=== PATIENT | male | born 1940 | race Caucasian/White ===

== ENCOUNTER 2020-05-06 13:07 | Inpatient (IN) | payer MEDICARE, MEDICAID, SELFPAY ==
[2020-05-06] VITALS (74 sets, daily range): BP systolic 86–142; BP diastolic 71–111; PULSE 97–156; RESP 14–41; TEMP 36.6; O2SAT 81–97; BMI 28.1
--- NOTE | 2020-05-06 14:36 | W.ED.COVID ---
HPI - COVID General: Chief Complaint: COVID symptoms Stated Complaint: covid+/lethargic/no appetite Time Seen by Provider: 05/06/20 13:58 Triage information: Has fever, cough or shortness of breath. Exposure to COVID + person last 14 days History of Present Illness: HPI Narrative: 80-year-old male presents emergency room with complaints of shortness of breath headache cough. Approximately a week ago he was tested for Covid and told it was positive. His symptoms had begun shortly prior to that. On arrival here he is tachycardic and at 81% on room air requiring 5 to 6 L to maintain sats in the low 90s. He is awake and conversant. He did have some loose stools but that is largely resolved. He denies any chest pain. MD complaint: known COVID positive Prior covid testing: yes, results known COVID 19 common symptoms: positive fever(s), chills, cough, productive cough, dyspnea, fatigue, body aches, loss of sense of smell and/or taste and nasal congestion; negative non-productive cough, headache(s), throat pain, nausea, vomiting or diarrhea COVID 19 other sytmptoms: positive chest pressure, requiring oxygen and respiratory distress; negative chest pain Onset (ago): day(s) Severity: moderate Pertinent comorbid conditions: hypertension Treatment prior to arrival: none COVID Results: No Data to Display Review of Systems Const: Reports: fever(s), chills, body aches and fatigue ENMT: Reports: nasal congestion; Denies: throat pain Card: Denies: chest pain, edema, dyspnea on exertion or orthopnea Resp: Reports: dyspnea and productive cough; Denies: non-productive cough GI: Denies: nausea, vomiting or diarrhea : Denies: flank pain, dysuria, urinary frequency or urinary urgency Skin/Breast: Denies: rash or pruritus Neuro: Denies: headache(s) PFS ED PFSH: Medical History (Updated 05/07/20 @ 07:12 by Kulwinder Urrutia DO) BPH (benign prostatic hyperplasia) CAD (coronary artery disease), [place] coronary artery Diabetes mellitus Hypertension Macular degeneration Skin cancer Surgical History (Updated 05/06/20 @ 17:57 by Charly Wells MD) Stented coronary artery Family History (Updated 05/06/20 @ 18:00 by Charly Wells MD) Other CAD (coronary artery disease) Hypertension Social History (Updated 05/06/20 @ 17:58 by Charly Wells MD) Smoking and tobacco status: former smoker Quit status (tobacco): has quit using tobacco Year quit tobacco: 20 yrs ago Alcohol intake: never Substance/Drug Use: never Household members: children Housing: House Marital status: / Physical Exam Const: COMMON NORMALS: no acute distress GENERAL APPEARANCE: cooperative and comfortable ORIENTATION/CONSCIOUSNESS: Yes awake, Yes oriented to person, Yes oriented to place and Yes oriented to time HENMT: COMMON NORMALS: normocephalic, atraumatic and hearing grossly normal bilaterally HEAD & SCALP: normocephalic and atraumatic Neck/C-Spine: COMMON NORMALS: no JVD Resp: AUSCULTATION: rales and wheezes Cardio: COMMON NORMALS: no JVD, regular rate, regular rhythm and No murmurs present (Cardio) RATE: regular rate RHYTHM: regular rhythm GI: COMMON NORMALS: Soft to palpation and No hepatosplenomegaly present AUSCULTATION: Yes normoactive bowel sounds PALPATION: Yes Soft to palpation, No Tenderness to palpation present (GI), No Guarding due to palpation present (GI) and Yes No hepatosplenomegaly present Extremity: COMMON NORMALS: normal to inspection, capillary refill normal, no clubbing, cyanosis or edema, no calf tenderness and no pedal edema Neuro: SENSORIUM/ORIENTATION: Yes oriented to person, Yes oriented to place and Yes oriented to time Skin: COMMON NORMALS: no rashes or lesions noted GENERAL SKIN EXAM: no rashes or lesions noted Course Vital Signs: Vital signs: Vital Signs Temperature 98.1 F 05/07/20 02:04 Pulse Rate 132 H 05/07/20 06:00 Respiratory Rate 24 H 05/07/20 06:00 Blood Pressure 119/82 05/07/20 06:00 Pulse Oximetry 86 L 05/07/20 06:00 MDM - COVID MDM Narrative: Medical decision making narrative: Patient having increased oxygen requirement. We will go ahead and admit. Additionally will need IV antibiotics and supportive care discussed with hospitalist orders are written Lab Data: Attestation: I reviewed the patient's lab results. Labs: Lab Results 05/06/20 05/06/20 05/06/20 Range/Units 00:45 15:00 15:00 WBC 7.6 (4.0-10.0) 10^3/ uL RBC 4.28 (4.1-5.3) 10^6/u L Hgb 12.8 (11.7-16.6) g/dL Hct 39.3 L (42.0-52.0) % MCV 91.8 (80-94) fL MCH 29.9 (28.0-34.0) pg MCHC 32.6 (30.0-36.0) g/dL RDW 13.2 (12.1-15.1) % Plt Count 150 (130-400) 10^3/c mm MPV 12.0 H (7.4-10.4) fL Neut % (Auto) 83.6 % Lymph % (Auto) 10.4 % Whitley % (Auto) 4.7 % Eos % (Auto) 0.1 % Baso % (Auto) 0.0 % Neut # (Auto) 6.33 (1.8-7.7) 10^3/u L Lymph # (Auto) 0.8 (0.8-4.8) 10^3/u L Whitley # (Auto) 0.4 (0.2-0.9) 10^3/u L Eos # (Auto) 0.0 (0.0-0.8) 10^3/u L Baso # (Auto) 0.0 (0.0-0.1) 10^3/u L Nucleated RBC % (a uto) 0 % Nucleated RBCs # 0.0 /100WBC D-Dimer 3.98 H (0-0.59) ug/mIFE U Specimen Type Sample Site ABG pH (7.35-7.45) ABG pCO2 (35-45) mmHg ABG pO2 (80.0-100.0) mmH g ABG HCO3 (22-26) mmol/L ABG Base Excess (-2.0-2.0) mmol/ L Trev Test Hematocrit (42-52) % O2 Delivery Device O2 Liters/Min % Medical Laboratory Scientist ID Sodium (136-145) mmol/L Potassium (3.5-5.1) mmol/L Chloride (98-107) mmol/L Carbon Dioxide (22-29) mmol/L Anion Gap (5-19) BUN (8-23) mg/dL Creatinine (0.7-1.2) mg/dL GFR Calculation Glucose (65-115) mg/dL Calculated Osmolal ity (285-295) mOsm/k g Lactic Acid 4.2 H* (0.5-2.2) mmol/L Calcium (8.5-10.5) mg/dL Total Bilirubin (0.15-1.2) mg/dL AST (0-40) U/L ALT (0-41) U/L Alkaline Phosphata se (40-130) IU/L C-Reactive Protein (0.0-4.9) mg/L Total Protein (6.6-8.7) g/dL Albumin (3.5-5.2) g/dL Globulin (1.3-4.6) g/dL 05/06/20 05/06/20 05/06/20 Range/Units 15:00 15:00 16:00 WBC (4.0-10.0) 10^3/ uL RBC (4.1-5.3) 10^6/u L Hgb (11.7-16.6) g/dL Hct (42.0-52.0) % MCV (80-94) fL MCH (28.0-34.0) pg MCHC (30.0-36.0) g/dL RDW (12.1-15.1) % Plt Count (130-400) 10^3/c mm MPV (7.4-10.4) fL Neut % (Auto) % Lymph % (Auto) % Whitley % (Auto) % Eos % (Auto) % Baso % (Auto) % Neut # (Auto) (1.8-7.7) 10^3/u L Lymph # (Auto) (0.8-4.8) 10^3/u L Whitley # (Auto) (0.2-0.9) 10^3/u L Eos # (Auto) (0.0-0.8) 10^3/u L Baso # (Auto) (0.0-0.1) 10^3/u L Nucleated RBC % (a uto) % Nucleated RBCs # /100WBC D-Dimer (0-0.59) ug/mIFE U Specimen Type Arterial Sample Site Radial, left ABG pH 7.47 H (7.35-7.45) ABG pCO2 26.2 L (35-45) mmHg ABG pO2 47.9 L (80.0-100.0) mmH g ABG HCO3 19.1 L (22-26) mmol/L ABG Base Excess -3.3 L (-2.0-2.0) mmol/ L Trev Test Pos Hematocrit 37.6 L (42-52) % O2 Delivery Device Oxy mask O2 Liters/Min 6.0 % Medical Laboratory Scientist ID [id number] Sodium 133 L (136-145) mmol/L Potassium 4.3 (3.5-5.1) mmol/L Chloride 101 (98-107) mmol/L Carbon Dioxide 20 L (22-29) mmol/L Anion Gap 16.3 (5-19) BUN 22 (8-23) mg/dL Creatinine 1.3 H (0.7-1.2) mg/dL GFR Calculation Not Reportable Glucose 357 H (65-115) mg/dL Calculated Osmolal ity 294 (285-295) mOsm/k g Lactic Acid 3.5 H (0.5-2.2) mmol/L Calcium 9.7 (8.5-10.5) mg/dL Total Bilirubin 0.6 (0.15-1.2) mg/dL AST 16 (0-40) U/L ALT 11 (0-41) U/L Alkaline Phosphata se 90 (40-130) IU/L C-Reactive Protein 86.7 H (0.0-4.9) mg/L Total Protein 6.2 L (6.6-8.7) g/dL Albumin 3.1 L (3.5-5.2) g/dL Globulin 3.1 (1.3-4.6) g/dL COVID Results: No Data to Display Discharge Plan Discharge Patient Disposition: Admitted As Inpatient Admit Provider: Charly Wells Clinical Impression: COVID-19, Acute respiratory failure with hypoxia, Hypertension, Diabetes mellitus Condition: Stable Coding Level of Care Code ED Confectionery Drops Machine Operator for g Fwd Exam Comprehensive
--- NOTE | 2020-05-06 14:43 | XR_ITS ---
WS: [id number] Exam: XR chest 1V portable [id number] Date/Time of Exam: 05/06/2020 2:49 PM Reason For Exam: dyspnea No priors. Widespread groundglass infiltrates noted throughout both lungs. Cardiomediastinal structures are unre markable for technique. No pleural effusion or pneumothorax. Monitoring leads superimpose the chest. XR/XR chest 1V portable [id number] IMPRESSION: 1. Widespread groundglass infiltrates throughout both lungs suggesting pneumoni a. The appearance is nonspecific but Covid 19 pneumonia can have this appearanc e. No previous exams to determine the chronicity of these changes.
[2020-05-06 15:18] LABS: Eosinophils % 0.1 %; Hematocrit 39.3 % (42.0-52.0); Hemoglobin 12.8 g/dL (11.7-16.6); Lymphocytes # 0.8 10^3/uL (0.8-4.8); Lymphocytes % 10.4 %; Mean Corpuscular HGB Conc 32.6 g/dL (30.0-36.0); Mean Corpuscular Hemoglobin 29.9 pg (28.0-34.0); Mean Corpuscular Volume 91.8 fL (80-94); Monocytes # 0.4 10^3/uL (0.2-0.9); Monocytes % 4.7 %; Neutrophils # 6.33 10^3/uL (1.8-7.7); Neutrophils % 83.6 %; Nucleated Red Blood Cells % 0 %; Platelet Count 150 10^3/cmm (130-400); Red Blood Count 4.28 10^6/uL (4.1-5.3); Red Cell Distribution Width 13.2 % (12.1-15.1); White Blood Count 7.6 10^3/uL (4.0-10.0)
[2020-05-06 15:36] LABS: D Dimer 3.98 ug/mIFEU (0-0.59)
[2020-05-06] MEDS: dexamethasone 4 mg/mL INJ 6 MG IVP (15:44)
[2020-05-06 15:56] LABS: Lactic Sepsis W/Reflex 3.5 mmol/L (0.5-2.2)
[2020-05-06] MEDS: albuterol 8 gm MDI 2 PUFF INHALATION (15:57)
[2020-05-06 15:58] LABS: Alanine Aminotransferase 11 U/L (0-41); Albumin Level 3.1 g/dL (3.5-5.2); Alkaline Phosphatase 90 IU/L (40-130); Anion Gap 16.3 (5-19); Aspartate Amino Transferase 16 U/L (0-40); Blood Urea Nitrogen 22 mg/dL (8-23); C Reactive Protein 86.7 mg/L (0.0-4.9); Calcium 9.7 mg/dL (8.5-10.5); Carbon Dioxide 20 mmol/L (22-29); Chloride 101 mmol/L (98-107); Globulin 3.1 g/dL (1.3-4.6); Glucose 357 mg/dL (65-115); Osmolality Calculated 294 mOsm/kg (285-295); Potassium 4.3 mmol/L (3.5-5.1); Sodium 133 mmol/L (136-145); Total Bilirubin 0.6 mg/dL (0.15-1.2); Total Protein 6.2 g/dL (6.6-8.7)
--- NOTE | 2020-05-06 16:00 | CTR_ITS ---
PROCEDURE INFORMATION: Exam: CT Angiography Chest With Contrast Exam date and time: 05/06/2020 5:51 PM Age: 80 years old Clinical indication: Abnormal findings; Abnormal diagnostic tests; Elevated d-dimer; Shortness of breath; Prior surgery; Surgery type: Stents; Patient HX: Covid +; Additional info: Elevated dimer TECHNIQUE: Imaging protocol: Computed tomographic angiography of the chest with intravenous contrast. 3D rendering (Not supervised by radiologist): MIP and/or 3D reconstructed images were created by the technologist. Radiation optimization: All CT scans at this facility use at least one of these dose optimization techniques: automated exposure control; mA and/or kV adjustment per patient size (includes targeted exams where dose is matched to clinical indication); or iterative reconstruction. Contrast material: VISI 320; Contrast volume: 81 ml; Contrast route: INTRAVENOUS (IV); COMPARISON: CR XR chest 1V portable [id number] 05/06/2020 2:54 PM RADIATION DOSE METRICS: Total DLP (mGy-cm): 631.56 FINDINGS: Limitations: The study is limited due to patient respiratory motion. This limits assessment of the peripheral branches of the pulmonary arteries. Pulmonary arteries: Pulmonary arteries are well opacified. Pulmonary arteries are normal in caliber. No filling defects are demonstrated. No evidence of pulmonary embolism, within the technical limits of the examination. Aorta: Atherosclerosis of the thoracic aorta which is poorly opacified. No aortic aneurysm. Lungs: Diffuse bilateral ground-glass infiltrates throughout both lungs. Pleural space: No pneumothorax. No pleural effusion. Heart: No cardiomegaly demonstrated. No pericardial effusion. Lymph nodes: Mild mediastinal adenopathy. Lymph nodes up to 1.8 cm short axis are noted. Mild bilateral hilar adenopathy also identified, with nodes up to 1.7 cm in length. Gallbladder and bile ducts: The gallbladder is surgically absent. Kidneys and ureters: Simple appearing 8 cm left renal cyst. Bones/joints: Degenerative thoracic spine changes. No acute osseous abnormality. Soft tissues: The soft tissues appear unremarkable. CT/CT angio chest PE protcl [id number] IMPRESSION: 1. The study is limited due to patient respiratory motion. This limits assessment of the peripheral branches of the pulmonary arteries. 2. Diffuse bilateral ground-glass infiltrates throughout both lungs. Findings are consistent with COVID-19 pneumonia. 3. Pulmonary arteries appear unremarkable. No evidence of pulmonary embolism. 4. Mild mediastinal and bilateral hilar adenopathy, nonspecific. COMMENTS: Consistent with the [employer]'s Incidental Findings Committee white paper (J Am Mitchell Radiol 2018): Any incidental renal lesion less than 1 cm or classified as too small to characterize, or any incidental cystic renal lesion characterized as simple-appearing, is likely benign. No follow-up imaging is recommended for these lesions per consensus recommendations based on imaging criteria. Radiation Dose CTDIVOL = (mGy): DLP = 631.56 (mGy-cm)
[2020-05-06 16:14] LABS: ABG PCO2 26.2 mmHg (35-45); ABG PH Result 7.47 (7.35-7.45); Arterial Blood Gas Hematocrit 37.6 % (42-52); Base Excess ABG -3.3 mmol/L (-2.0-2.0); Blood Gas Allen Test Pos; Blood Gas Sample Site Radial, left; Blood Gas Sample Type Arterial; HCO3 ABG 19.1 mmol/L (22-26); Oxygen Device OXY MASK; PO2 ABG 47.9 mmHg (80.0-100.0)
[2020-05-06 17:01] LABS: Reflex Lactate Order REFLEX LACTIC ORDERD
[2020-05-06] MEDS: remdesivir 200 MG in sodium chloride 0.9% (100 ml) 100 ML 100 MG IV (17:04)
[2020-05-06] MEDS: levofloxacin-dextrose 5 % 750 MG/150 ML PREMIX 100 MG IV (17:07)
--- NOTE | 2020-05-06 17:54 | PM.HP ---
Providers/Chief Complaint Admitting Physician: Charly Wells MD Primary Care Provider: Ramez Ojeda Chief Complaint: covid+/lethargic/no appetite History of Present Illness Reena Gamez is a 80 year old male with past medical history of hypertension, diabetes, CAD with possible PCI, possible COPD not on home oxygen, BPH who was brought in by son today after feeling lethargic, sleeping on and off, decreased appetite, difficulty in breathing along with cough, occasional subjective feelings of fever going on for last 7 to 10 days. As per the son patient has been living alone for last 6 to 7 years after his and has not been able to take care of of himself because of which Mr. Gamez has been living with his son for last couple of weeks. Patient was diagnosed of COVID-19 around 10 days ago. Patient has not been having any diarrhea to have decreased appetite. As per son patient has also been having extreme weakness because of which he has been having bladder accidents specially at night. As per son patient does take Lasix 40 mg twice daily with the evening dose at around 8 PM. In the ER patient was found to be hypoxic down to 80s even on 6 L oxygen mask so decision was made to admit patient to the hospital. His blood work in the ER showed a white count of 7.6, hemoglobin of 12.8, platelet of 150, D-dimer of 3.98, ABG showing a pH of 7.4, PCO2 26, PO2 47.9, sodium of 133, potassium of 4.3, creatinine of 1.3, lactic acid of 3.5, AST/ALT of 16/11, CRP of 56.7 with chest x-ray showing widespread groundglass infiltrates throughout the lung bilaterally. On examination patient was saturating 85% on 6 L oxygen mask and was transitioned over to high flow nasal cannula after which her saturations improved to low 90s. His heart rate was fluctuating between 95-115 bpm with blood pressure of 109/78 mmHg. Healthcare proxy is patient's daughter Ms. Giulia Negron on [phone] Review of Systems General: Reports: 10 or more systems reviewed and unremarkable except in HPI and below Const: Denies: fever(s), chills, body aches, change in appetite, change in weight, malaise, night sweats, diaphoresis, change in sleep pattern, daytime sleepiness or snoring Eyes: Denies: change in vision, blurry vision, photophobia, eye discomfort or eye discharge ENMT: Denies: throat pain, enlarged tonsils, hoarseness, mouth pain, oral sores, dry mouth, tinnitus, nasal congestion or post nasal drip Card: Denies: chest pain, palpitations, irregular heart rhythm, edema, swelling of feet/ankles, lightheadedness, syncope, pre-syncope, dyspnea on exertion, orthopnea, leg pain with exertion or acrocyanosis Resp: Denies: dyspnea, productive cough, non-productive cough, wheezing, stridor, pain on inspiration, change in phlegm color, hemoptysis or chest congestion GI: Denies: abdominal pain, nausea, vomiting, hematemesis, coffee ground emesis, dysphagia, heartburn, diarrhea, constipation, bloating, GI cramping, change in bowel habits, pain on defecation, hematochezia or melena : Denies: flank pain, difficulty urinating, dysuria, urinary frequency, urinary urgency, urinary hesitancy, urinary dribbling, difficulty starting urination, change in urine stream, nocturia or hematuria Musc: Denies: neck pain, back pain, extremity pain, joint pain, joint swelling, joint redness, joint stiffness or limited range of motion Neuro: Denies: headache(s), numbness in extremities, weakness in extremities, sensory changes, lack of coordination, difficulty walking, frequent falls, dizziness, vertigo, confusion, Slurred speech present, difficulty communicating thoughts or seizure-like activity Psych: Denies: anxiety, depression, mood swings, panic attacks, hopelessness or irritability Endo: Denies: polyuria, polydipsia, tired all the time, cold intolerance, excessive sweating, flushing or heat intolerance Holger/Lymph: Denies: easy bruising or easy bleeding All/Imm: Denies: tongue swelling, facial swelling or acute wheezing Medications/Allergies Home Medications Medication Instructions Recorded Confirmed Last Taken Type albuterol sulfate [Ventolin HFA] 2 puff INHALATION DIRECTED 05/06/20 05/06/20 Unknown History carvedilol 12.5 mg PO BID@1100,2300 05/06/20 05/06/20 05/06/20 History clopidogrel 75 mg PO DAILY@1100 05/06/20 05/06/20 05/06/20 History furosemide 40 mg PO BIDWM 05/06/20 05/06/20 Unknown History glipizide 10 mg PO DAILY@1100 05/06/20 05/06/20 05/06/20 History isosorbide mononitrate 30 mg PO BID@1100,2300 05/06/20 05/06/20 05/06/20 History metformin 1,000 mg PO BID@1100,2300 05/06/20 05/06/20 05/06/20 History pantoprazole 40 mg PO BID@1100,2300 05/06/20 05/06/20 05/06/20 History potassium chloride 10 meq PO BID@1100,2300 05/06/20 05/06/20 05/06/20 History pravastatin 40 mg PO DAILY@1100 05/06/20 05/06/20 05/06/20 History prednisone 20 mg PO BID@1100,2300 05/06/20 05/06/20 05/06/20 History spironolactone 25 mg PO DAILY@1100 05/06/20 05/06/20 05/06/20 History tamsulosin 0.4 mg PO DAILY@1100 05/06/20 05/06/20 05/06/20 History tizanidine 1 - 2 mg PO TID PRN 05/06/20 05/06/20 Unknown History Allergies Allergy/AdvReac Type Severity Reaction Status Date / Time No Known Drug Allergies Allergy Unknown Verified 05/07/20 09:09 PFSH Acute PFSH: Medical History (Updated 05/07/20 @ 07:12 by Kulwinder Urrutia DO) BPH (benign prostatic hyperplasia) CAD (coronary artery disease), [place] coronary artery Diabetes mellitus Hypertension Macular degeneration Skin cancer Surgical History (Updated 05/06/20 @ 17:57 by Charly Wells MD) Stented coronary artery Family History (Updated 05/06/20 @ 18:00 by Charly Wells MD) Other CAD (coronary artery disease) Hypertension Social History (Updated 05/06/20 @ 17:58 by Charly Wells MD) Smoking and tobacco status: former smoker Quit status (tobacco): has quit using tobacco Year quit tobacco: 20 yrs ago Alcohol intake: never Substance/Drug Use: never Household members: children Housing: House Marital status: / Vitals/I&O/Wt Last Vital Signs Temp 97.9 F 05/06/20 14:05 Pulse 126 H 05/06/20 16:39 Resp 26 H 05/06/20 16:39 BP 109/78 05/06/20 14:05 Pulse Ox 90 05/06/20 16:39 Weight last 48 hrs Weight 81.647 kg Physical Exam Narrative: EXAM NARRATIVE: General: No acute distress, AO x3, tired appearing, lethargic, maintaining saturation on high flow nasal cannula HEENT: PERRLA, pupils bilaterally equal and reactive Chest: Bilateral rhonchi along with crackles present all over the lung sharpe, good air entry all over the lung sharpe CVS: S1-S2 regular, no murmurs, no tachycardia, no gallops, no rubs Abdomen: Soft, nontender, no organomegaly, bowel sounds present Neuro: No focal deficits, no facial deformity, AO x3, power 5/5 in all limbs Data : 05/07/20 00:45 05/07/20 00:45 Micro: Microbiology 05/06/20 16:48 Blood Culture - Preliminary Blood SPECIMEN COLLECTED 05/06/20 16:48 Blood Culture - Preliminary Blood SPECIMEN COLLECTED A&P Assessment and plan (1) Acute respiratory failure with hypoxia: Status: Acute (2) COVID-19: Status: Acute (3) Hypertension: Status: Acute (4) Diabetes mellitus: Status: Acute Additional A&P Information Acute hypoxic respiratory failure secondary to COVID-19 pneumonia: At least moderate disease. Oxygen supplementation keeping saturation over 90%. Remdesivir for 5-day course. Dexamethasone 6 mg IV daily. As patient is on high flow we will start patient on DuoNebs every 4 hour, Pulmicort twice daily. Vitamin C, zinc. Tessalon Perles 100 mg scheduled 3 times a day. Aggressive pulmonary toilet with incentive spirometry and flutter valve. Check procalcitonin, blood culture, urine culture, MRSA swab, iron panel, TSH, urine Legionella, bacterial antigen. Check low chances of superadded bacterial infection for now. Start patient on Levaquin. If procalcitonin elevated or if patient requires higher oxygen supplementation will broaden the coverage. Patient's D-dimer is elevated so start patient on full dose Lovenox as per the creatinine clearance. Will do CTA chest PE protocol. Follow-up inflammatory markers including proBNP, ferritin, CRP, ESR, D-dimer. Check echocardiogram. Patient does have history of CAD in the past but not sure of the EF. We will try to keep patient in negative fluid balance for now. Lactic acidosis: Most likely secondary to hypoxia. We will continue to monitor. Tachycardia: Most likely paroxysmal A. fib. If needed will give Cardizem 12.5 mg IV every 6 hours as needed for heart rate of more than 110. If patient requiring multiple doses can start on IV Cardizem drip versus amiodarone depending on blood pressure. Hypertension: Goal blood pressure less than 140/90 mmHg. We will continue to monitor. For now continue with home dose of antihypertensives. Soft diet. Full code. CODE STATUS discussed with son in detail. As per the son and the [id number] on phone patient would be okay with chest compression or mechanical ventilation if needed for short-term. They also stated patient's daughter is the healthcare proxy. Her number is in the [facility]. We will try to call her again for further course status. Full dose Lovenox. Attestations Medical Necessity Statement*: Admission for more than 2 midnights for acute hypoxic respiratory failure because of COVID-19 pneumonia Time Spent in Patient Care: Greater than 35 minutes (>than 50% of time spent in counselling and/or direct pt care on unit). Coding Level of Care Code Acute Upper Shaper for Cristina Odonnell Diagnoses Acute respiratory failure with hypoxia J96.01 COVID-19 U07.1 Hypertension I10 Diabetes mellitus E11.9
[2020-05-06] MEDS: iodixanol 320 mg/mL 100mL Btl IV (18:19)
[2020-05-06 18:25] LABS: NT Pro B Type Natriuretic Pept 6368 pg/mL (0-450); Procalcitonin 0.12 ng/mL (0-0.5)
[2020-05-06 18:25] LABS: Thyroid Stimulating Hormone 4.51 uIU/mL (0.27-4.20)
[2020-05-06 18:37] LABS: Iron 26 ug/dL (59-158); Percent Saturation 12.1 % (20-50); Total Iron Binding Capacity 214 mcg/dl; Unsaturated Iron Binding 188 ug/dL (112-347)
[2020-05-06] MEDS: enoxaparin 100 mg/mL Syringe 80 MG SUBCUT (23:57)
[2020-05-07] VITALS (104 sets, daily range): BP systolic 73–130; BP diastolic 51–98; PULSE 79–149; RESP 16–38; TEMP 36.6–36.7; O2SAT 80–99
[2020-05-07] MEDS: pantoprazole DR 40 mg Tablet PO (00:01)
[2020-05-07] MEDS: ascorbic acid 500 mg Tablet 1000 MG PO (00:01)
[2020-05-07] MEDS: benzonatate 100 mg Capsule PO (00:01)
[2020-05-07] MEDS: carvedilol 12.5 mg Tablet PO (00:01)
[2020-05-07] MEDS: ferrous gluconate 324 mg Tablet PO (00:02)
[2020-05-07] MEDS: ipratropium-albuterol 3 mL Neb INHALATION ×3 (00:14→07:19)
[2020-05-07 00:50] LABS: Glucose Point of Care 337 mg/dL (70-110)
[2020-05-07] MEDS: sodium chloride 0.9% 500 ML 999 ML IV (00:54)
[2020-05-07 01:33] LABS: Fibrinogen 372 mg/dL (174-498)
[2020-05-07 01:37] LABS: Hematocrit 41.8 % (42.0-52.0); Hemoglobin 13.3 g/dL (11.7-16.6); Mean Corpuscular HGB Conc 31.8 g/dL (30.0-36.0); Mean Corpuscular Hemoglobin 29.4 pg (28.0-34.0); Mean Corpuscular Volume 92.5 fL (80-94); Mean Platelet Volume 12.4 fL (7.4-10.4); Platelet Count 135 10^3/cmm (130-400); Red Blood Count 4.52 10^6/uL (4.1-5.3); Red Cell Distribution Width 13.2 % (12.1-15.1); White Blood Count 6.6 10^3/uL (4.0-10.0)
[2020-05-07 01:40] LABS: Alanine Aminotransferase 11 U/L (0-41); Albumin Level 3.3 g/dL (3.5-5.2); Alkaline Phosphatase 102 IU/L (40-130); Anion Gap 17.9 (5-19); Aspartate Amino Transferase 16 U/L (0-40); Blood Urea Nitrogen 22 mg/dL (8-23); Carbon Dioxide 20 mmol/L (22-29); Chloride 101 mmol/L (98-107); Glucose 386 mg/dL (65-115); Osmolality Calculated 295 mOsm/kg (285-295); Potassium 5.9 mmol/L (3.5-5.1); Sodium 133 mmol/L (136-145); Total Bilirubin 0.6 mg/dL (0.15-1.2); Total Protein 6.3 g/dL (6.6-8.7)
[2020-05-07 01:42] LABS: Magnesium 1.9 mg/dL (1.7-2.3); Phosphorus 3.1 mg/dL (2.5-4.5)
[2020-05-07 01:47] LABS: Lactic Sepsis W/Reflex 4.2 mmol/L (0.5-2.2)
[2020-05-07 01:49] LABS: C Reactive Protein 72.1 mg/L (0.0-4.9); Creatine Phosphokinase 34 U/L (39-308); Ferritin 544 ng/mL (30-400); NT Pro B Type Natriuretic Pept 5790 pg/mL (0-450)
[2020-05-07 01:53] LABS: Lactate Dehydrogenase 403 U/L (135-225)
[2020-05-07 02:00] LABS: Estmated Average Glucose 206; Hemoglobin A1C 8.8 % (4.0-6.0)
[2020-05-07 02:49] LABS: Eosinophils 0 %; Lymphocytes 6 %; Monocytes Absolute 0.2 10^3/cmm (0.1-0.6); Platelet Estimate Normal (Normal); Segmented Neutrophils 91 %; Total Cells Counted 100 (0-100)
[2020-05-07 02:58] LABS: Reflex Lactate Order REFLEX LACTIC ORDERD
--- NOTE | 2020-05-07 03:45 | PC.NURSE ---
TRANSFER Patient brought to floor by ED RN on 15L nonrebreather. Patient ambulated from gurney to bed. Patient alert and oriented. Respiratory in room and transitioned patient to HHFNC at 40L and 80%.
--- NOTE | 2020-05-07 03:46 | PC.NURSE ---
HEART RATE Patients heart rate remained sinus tachycardia with frequent PVC's in the 120s-150s upon arrival to unit. Dr. Pedersen called to notify and gave order for one time 500 mL normal saline bolus. Approximately 25 mL of bolus given and patient began to have wet cough and wheezing. Bolus stopped, Dr. Pedersen called again and gave order to discontinue bolus and 5 mg IVP cardizem given. Patients heart rate is now below 100 but is in atrial fibrillation.
--- NOTE | 2020-05-07 06:00 | XR_ITS ---
WS: [id number] Exam: XR chest 1V portable [id number] Date/Time of Exam: 05/07/2020 7:40 AM Reason For Exam: covid Comparison 05/06/2020 Increasing widespread pulmonary infiltrates noted. The lungs remain fully inflated. No pleural effusi ons. Cardiomediastinal structures are unremarkable for a portable AP technique. Monitoring leads supe rimpose the chest. XR/XR chest 1V portable [id number] IMPRESSION: 1. Increasing widespread pulmonary infiltrates since previous exam. 2. Advanced emphysematous changes noted in the mid and upper lung zones.
[2020-05-07] MEDS: LORazepam 2 mg/mL INJ 1 mL 0.5 MG IVP (06:12)
[2020-05-07] MEDS: FUROsemide 10 mg/mL SDV 2mL 20 MG IVP (06:12)
[2020-05-07 06:32] LABS: Influenza A by IFA Negative (Negative); Influenza B by IFA Negative (Negative)
[2020-05-07 06:35] LABS: Lactic Acid level (Lactate) 2.9 mmol/L (0.5-2.2)
--- NOTE | 2020-05-07 06:43 | PC.NURSE ---
ANXIETY Patient has been increasingly anxious the last couple hours he says. Nurse walked in room and observed patient leaving his son a voicemail on the phone. Patient was stating I think its over. You can plan my service however you want and pick whatever songs you guys want. I love you guys and thank you for all youve done for me if I dont make it through this. Dr. Pedersen notified and gave one time order for 0.5 mg IVP ativan. Patient resting in bed and states that he feels less anxious when he sees his oxygen is a good number on the monitor.
[2020-05-07 07:50] LABS: Glucose Point of Care 310 mg/dL (70-110)
[2020-05-07 08:06] LABS: ABG PCO2 27.4 mmHg (35-45); ABG PH Result 7.45 (7.35-7.45); Alveolar-Arterial Oxygen Gradi 81.5 mmHg (5-10); Arterial Blood Gas Hematocrit 42.3 % (42-52); Base Excess ABG -3.4 mmol/L (-2.0-2.0); Blood Gas Allen Test Pos; Blood Gas Operator Identificat glc; Blood Gas Sample Site Radial, left; Blood Gas Sample Type Arterial; Carboxyhemoglobin 0.9 %THgb (0.4-20.1); HCO3 ABG 19.1 mmol/L (22-26); HGB O2 Sat 82.3 % (95-100); Ionized Calcium Level - ABG 1.3 mmol/L (1.1-1.4); Methemoglobin 0.6 % (0.4-1.5); Oxygen Device VENTURI; Oxygen Saturation ABG 83.6; PO2 ABG 45.7 mmHg (80.0-100.0); Potassium Level - ABG 4.1 mmol/L (3.5-5.0); Total Hemoglobin 13.8 g/dL (14-18)
[2020-05-07] MEDS: morphine 4 mg/mL SDV 1 mL 2 MG IVP (08:34)
[2020-05-07] MEDS: OLANZapine 10 mg VIAL 5 MG IM ×2 (08:35→13:20)
[2020-05-07] MEDS: FUROsemide 10 mg/mL SDV 4mL 40 MG IVP ×2 (08:44→17:59)
[2020-05-07] MEDS: levalbuterol 0.63 mg/3 mL Neb INHALATION ×3 (11:11→21:35)
[2020-05-07] MEDS: ipratropium 0.5 mg/2.5 mL Neb INHALATION ×3 (11:11→21:35)
[2020-05-07] MEDS: metoprolol tartrate 1 mg/1 mL SDV 5 mL 2.5 MG IV (13:19)
[2020-05-07] MEDS: enoxaparin 100 mg/mL Syringe 80 MG SUBCUT ×2 (13:20→22:11)
[2020-05-07 15:26] LABS: Free T4 Free Thyroxine 1.46 ng/dL (0.82-1.77)
[2020-05-07 16:54] LABS: Glucose Point of Care 411 mg/dL (70-110)
--- NOTE | 2020-05-07 16:59 | P.PN_ITS ---
Subjective Subjective: Interval history: Overnight patient has remained hypoxic with saturation going down to 81. On examination patient saturation 84% on 50 L 100% FiO2 through high flow nasal cannula. Patient seems agitated but not confused. He is able to answer questions appropriately. AO x2. Overnight patient's heart rate has remained between 120 to 140 bpm for which she was given Cardizem 12.5 and 5 mg respectively. Currently on examination heart rate 130s with blood pressure 109/60. During my examination Xavier catheterization was placed, patient was given bolus amiodarone and started on amiodarone infusion, methylprednisolone 125 mg stat was given, nebulization with Xopenex, ipratropium was done, ABG was done and results are appreciated. Precedex was started and patient was placed on BiPAP. Goals of care discussion/medical update was visited with patient's son Mr. Sabillon and daughter Ms. Platt over the phone. Patient's CODE STATUS was changed to DNR/DNI with monitoring for next 24 hours with plan to revisit goals of care depending on clinical situation in next 24 hours. Patient's son will visit him at bedside today. Vitals/I&O/Wt Last Vital Signs Temp 98.1 F 05/07/20 02:04 Pulse 89 05/07/20 16:00 Resp 21 H 05/07/20 16:00 BP 93/67 05/07/20 16:00 Pulse Ox 97 05/07/20 16:00 05/07/20 05/07/20 05/07/20 06:59 14:59 22:59 Intake Total 525 / 525 103 / 103 Output Total 475 / 475 225 / 225 325 / 550 Balance 50 / 50 -122 / -122 -325 / -447 Weight last 48 hrs Weight 100.698 kg Weight 81.647 kg Physical Exam Narrative: EXAM NARRATIVE: General: No acute distress, AO x3, tired appearing, lethargic, maintaining saturation on high flow nasal cannula HEENT: PERRLA, pupils bilaterally equal and reactive Chest: Bilateral rhonchi along with crackles present all over the lung sharpe, good air entry all over the lung sharpe CVS: S1-S2 regular, no murmurs, no tachycardia, no gallops, no rubs Abdomen: Soft, nontender, no organomegaly, bowel sounds present Neuro: No focal deficits, no facial deformity, AO x3, power 5/5 in all limbs Urinary Catheter Management^: 2-way Urethral: Cath Placed During This Visit: yes Urinary Catheter Date of Insertion: 05/07/20 Urinary Catheter Time of Insertion: 08:30 Data : 05/07/20 00:45 05/07/20 00:45 Micro: Microbiology 05/07/20 09:35 Bacterial Antigens - Final Urine,Clean Catch 05/07/20 09:35 Legionella Urinary Antigen - Final Urine Catheterized 05/06/20 16:48 Blood Culture - Preliminary Blood SPECIMEN COLLECTED 05/06/20 16:48 Blood Culture - Preliminary Blood SPECIMEN COLLECTED A&P Assessment and plan (1) Acute respiratory failure with hypoxia: Status: Acute (2) COVID-19: Status: Acute (3) CKD (chronic kidney disease): Status: Acute (4) Systolic heart failure secondary to coronary artery disease: Status: Acute (5) Hypertension: Status: Acute (6) Diabetes mellitus: Status: Acute (7) Lactic acidosis: Status: Acute (8) Hyperkalemia: Status: Acute Additional A&P Information Acute hypoxic respiratory failure/ARDS secondary to COVID-19 pneumonia: Oxygen supplementation keeping saturation over 90%. For now switch over to BiPAP. We will try to get him back to high flow once patient stabilizes. N.p.o. for now. Continue Precedex infusion for agitation along with Zyprexa IM as needed every 6 hours. Continue with remdesivir to finish a 5-day course. Given possibility of baseline emphysema we will switch over from dexamethasone 6 mg IV daily to methylprednisolone 60 mg every 6 hours after start 125 mg IV. Switch DuoNeb to ipratropium and Xopenex every 4 hours, Pulmicort twice daily Vitamin C, zinc. Tessalon Perles 100 mg scheduled 3 times a day. Aggressive pulmonary toilet with incentive spirometry and flutter valve. Procalcitonin negative, blood culture, urine culture, MRSA swab pending. Urine Legionella, bacterial antigen negative. For now as patient is critically sick we will continue Levaquin 500 mg every 48 hours as per his creatinine clearance. If patient spikes fever or white count trends up we will broaden the coverage. Appreciate CTA results. For now continue with full dose Lovenox as per creatinine clearance. Follow-up inflammatory markers including proBNP, ferritin, CRP, ESR, D-dimer. CAD with systolic congestive heart failure: Last echocardiogram from primary's office from 2016 shows mildly dilated LV with EF of 40% and mild MR. Given severe ARDS we will try to keep patient on negative side. Start patient on 40 mg IV twice daily. Xavier catheterization. Strict input output charting, daily weights. CKD: Baseline creatinine as per PCP office around 1.3. Seems patient's creatinine is at baseline. Medical reconciliation done for nephrotoxic drugs we will continue to monitor. Hyperkalemia: Insulin 10 and D50. Repeat BMP in afternoon. Lactic acidosis: Most likely secondary to hypoxia. We will continue to monitor. Tachycardia: Most likely paroxysmal A. fib. Amiodarone 150 mg stat followed by infusion. Hypertension: Goal blood pressure less than 140/90 mmHg with mean arterial pressure over 60. We will continue to monitor. Hold off on antihypertensives for now. NPO. Full code. CODE STATUS: Discussed in detail with patient's son Mr. Sabillon and patient himself and his healthcare proxy daughter Ms. Platt. They state that patient would not want any kind of chest compressions or intubation. Patient's CODE STATUS has been changed in the system. Also discussed in detail with both son and daughter with son at bedside that if patient saturation does not improve on oxygen supplementation unfortunately there is nothing much which could be done other than waiting. Also discussed that we will continue to monitor and current treatment for next 24 hours and revisit regarding further goals of care at that time. Family for now intermittently for comfort measures versus hospice if required. Case management consulted. Full dose Lovenox. Severely guarded prognosis Attestations Medical Necessity Statement*: Patient requires further hospitalization for management of ARDS from COVID-19 pneumonia Critical Care Time: Amiodarone infusion, Precedex infusion, management of supplemental oxygen, multiple goals of care discussion Critical Care Time (min): 70 Coding Level of Care Code Acute Lisw for [facility] Diagnoses Acute respiratory failure with hypoxia J96.01 COVID-19 U07.1 CKD (chronic kidney disease) N18.9 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
[2020-05-07] MEDS: dextrose 50% syringe 50 mL IVP (17:56)
[2020-05-07] MEDS: insulin regular-human 10 UNIT in SYRINGE 1 EACH IVP (17:57)
[2020-05-07 17:59] LABS: Glucose Point of Care 324 mg/dL (70-110)
[2020-05-07] MEDS: iron sucrose 200 MG in sodium chloride 0.9% (100 ml) 100 ML 220 MG IV (18:01)
[2020-05-07 19:56] LABS: Blood Urea Nitrogen 32 mg/dL (8-23); Calcium 9.7 mg/dL (8.5-10.5); Carbon Dioxide 20 mmol/L (22-29); Chloride 98 mmol/L (98-107); Glucose 436 mg/dL (65-115); Osmolality Calculated 304 mOsm/kg (285-295); Sodium 134 mmol/L (136-145)
[2020-05-07] MEDS: insulin regular-human 250 UNIT in sodium chloride 0.9% 250 ML 14.2 UNIT IV (20:01)
[2020-05-07 20:03] LABS: Anion Gap 21.2 (5-19); Potassium 5.2 mmol/L (3.5-5.1)
[2020-05-07] MEDS: famotidine 20 mg/2 mL INJ IVP (21:28)
[2020-05-07] MEDS: remdesivir 100 MG in sodium chloride 0.9% (100 ml) 100 ML IV (22:13)
[2020-05-07 22:24] LABS: Glucose Point of Care 495 mg/dL (70-110)
[2020-05-07 22:24] LABS: Glucose Point of Care 482 mg/dL (70-110)
[2020-05-07 23:41] LABS: Glucose Point of Care 436 mg/dL (70-110)
[2020-05-08] VITALS (38 sets, daily range): BP systolic 48–146; BP diastolic 24–105; PULSE 70–139; RESP 14–28; TEMP 36.6–36.8; O2SAT 73–96
[2020-05-08] MEDS: levalbuterol 0.63 mg/3 mL Neb INHALATION ×7 (00:06→23:19)
[2020-05-08] MEDS: ipratropium 0.5 mg/2.5 mL Neb INHALATION ×7 (00:06→23:19)
[2020-05-08 00:36] LABS: Glucose Point of Care 448 mg/dL (70-110)
[2020-05-08] MEDS: dexmedetomidine 400 MCG in sodium chloride 0.9% (100 ml) 100 ML 6.4 MCG IV (00:47)
[2020-05-08 01:27] LABS: Glucose Point of Care 389 mg/dL (70-110)
[2020-05-08 02:25] LABS: Glucose Point of Care 404 mg/dL (70-110)
--- NOTE | 2020-05-08 03:57 | PC.NURSE ---
ASSUMING CARE Patient resting in bed with 1:1 sitter at bedside. Patient is able to follow commands and is awake but sleepy. Patient is on amiodarone drip at 0.5 mg/hour, precedex drip at 0.3 mcg/kg/hour. Day shift nurse checked patients blood glucose and got a reading of 528. Dr. Wells notified by day shift RN and gave order to start insulin gtt. Insuling drip initiated.
[2020-05-08 04:03] LABS: Glucose Point of Care 362 mg/dL (70-110)
[2020-05-08 04:32] LABS: ABG PCO2 31.5 mmHg (35-45); ABG PH Result 7.43 (7.35-7.45); Base Excess ABG -2.8 mmol/L (-2.0-2.0); Blood Gas Allen Test Pos; Blood Gas Sample Type Arterial; Carboxyhemoglobin 0.9 %THgb (0.4-20.1); HCO3 ABG 20.6 mmol/L (22-26); Ionized Calcium Level - ABG 1.4 mmol/L (1.1-1.4); Methemoglobin 0.7 % (0.4-1.5); Oxygen Saturation ABG 87.3; Potassium Level - ABG 3.6 mmol/L (3.5-5.0)
[2020-05-08 04:34] LABS: Alveolar-Arterial Oxygen Gradi 62.4 mmHg (5-10); Blood Gas Operator Identificat ED; Blood Gas Sample Site Radial, left
[2020-05-08 04:34] LABS: Glucose Point of Care 355 mg/dL (70-110)
[2020-05-08] MEDS: FUROsemide 10 mg/mL SDV 4mL 40 MG IVP ×2 (04:37→17:04)
[2020-05-08 04:45] LABS: Basophils % 0.2 %; Hematocrit 39.5 % (42.0-52.0); Hemoglobin 13.1 g/dL (11.7-16.6); Lymphocytes # 0.5 10^3/uL (0.8-4.8); Lymphocytes % 7.4 %; Mean Corpuscular HGB Conc 33.2 g/dL (30.0-36.0); Mean Corpuscular Hemoglobin 29.8 pg (28.0-34.0); Mean Corpuscular Volume 89.8 fL (80-94); Mean Platelet Volume 12.2 fL (7.4-10.4); Monocytes # 0.2 10^3/uL (0.2-0.9); Neutrophils % 88.8 %; Nucleated Red Blood Cells % 0 %; Platelet Count 147 10^3/cmm (130-400); Red Cell Distribution Width 13.2 % (12.1-15.1); White Blood Count 6.6 10^3/uL (4.0-10.0)
[2020-05-08 05:09] LABS: Fibrinogen 400 mg/dL (174-498)
[2020-05-08 05:12] LABS: D Dimer 1.91 ug/mIFEU (0-0.59)
[2020-05-08 05:19] LABS: Glucose Point of Care 285 mg/dL (70-110)
[2020-05-08 05:22] LABS: Slide Review Slide Review Perform
[2020-05-08 05:31] LABS: Alanine Aminotransferase 11 U/L (0-41); Alkaline Phosphatase 99 IU/L (40-130); Anion Gap 18.7 (5-19); Aspartate Amino Transferase 10 U/L (0-40); Blood Urea Nitrogen 37 mg/dL (8-23); Calcium 9.7 mg/dL (8.5-10.5); Carbon Dioxide 19 mmol/L (22-29); Chloride 106 mmol/L (98-107); Globulin 3.1 g/dL (1.3-4.6); Glucose 378 mg/dL (65-115); Osmolality Calculated 314 mOsm/kg (285-295); Potassium 3.7 mmol/L (3.5-5.1); Sodium 140 mmol/L (136-145); Total Bilirubin 0.5 mg/dL (0.15-1.2); Total Protein 6.1 g/dL (6.6-8.7)
[2020-05-08 05:49] LABS: C Reactive Protein 56.1 mg/L (0.0-4.9); Creatine Phosphokinase 16 U/L (39-308); Ferritin 583 ng/mL (30-400); Lactate Dehydrogenase 342 U/L (135-225); NT Pro B Type Natriuretic Pept 4052 pg/mL (0-450)
[2020-05-08 06:24] LABS: Glucose Point of Care 191 mg/dL (70-110)
[2020-05-08 07:02] LABS: Oxygen Device HHF
[2020-05-08 07:56] LABS: Glucose Point of Care 528 mg/dL (70-110)
[2020-05-08 07:56] LABS: Glucose Point of Care 70 mg/dL (70-110)
[2020-05-08 07:56] LABS: Glucose Point of Care 521 mg/dL (70-110)
[2020-05-08] MEDS: insulin glargine 100 units/1 mL 20 UNIT SUBCUT (08:21)
[2020-05-08] MEDS: famotidine 20 mg/2 mL INJ IVP ×2 (09:07→19:58)
--- NOTE | 2020-05-08 09:11 | PC.NURSE ---
Hold morning oral meds until more alert, except amio, give 200mg now and turn off gtt 2 hours after.
--- NOTE | 2020-05-08 09:17 | PC.NURSE ---
Insulin gtt turned off of at 0600 this am per reporting RN. Me and Ernie RN stopped gtt in JUN at 0600, verified gtt not running at that time.
[2020-05-08 09:34] LABS: Procalcitonin 0.14 ng/mL (0-0.5)
[2020-05-08] MEDS: amiodarone 200 mg Tablet PO ×2 (09:38→17:05)
[2020-05-08] MEDS: dextrose 50% syringe 50 mL 25 ML IVP (09:43)
[2020-05-08 10:35] LABS: Glucose Point of Care 119 mg/dL (70-110)
[2020-05-08 10:35] LABS: Glucose Point of Care 39 mg/dL (70-110)
[2020-05-08] MEDS: atorvastatin 40 mg Tablet 20 MG PO (10:41)
[2020-05-08] MEDS: clopidogrel 75 mg Tablet PO (10:41)
[2020-05-08 11:28] LABS: Glucose Point of Care 398 mg/dL (70-110)
[2020-05-08 12:03] LABS: Glucose Point of Care 121 mg/dL (70-110)
[2020-05-08] MEDS: benzonatate 100 mg Capsule PO ×2 (14:00→20:00)
[2020-05-08 14:49] LABS: Glucose Point of Care 46 mg/dL (70-110)
[2020-05-08 15:12] LABS: Glucose Point of Care 60 mg/dL (70-110)
[2020-05-08 16:01] LABS: Glucose Point of Care 74 mg/dL (70-110)
--- NOTE | 2020-05-08 16:04 | P.PN_ITS ---
Subjective Subjective: Interval history: Overnight patient's blood sugar was more than 500 so he was started on an insulin drip which was transitioned over to insulin sliding scale along with Lantus. On examination patient is a little more awake, calm today. He continues to be on amiodarone drip which was stopped later in the day and transitioned over to oral amiodarone. He was started on a clear liquid diet which he tolerated well and has been advanced to GI soft diet. His blood sugars continue to be fluctuating going as high as 300 and as low as 60. He has been hemodynamically he has remained stable. He is maintaining saturation more than 90% on heated high flow. Today morning he was found to have leakage around the catheter because of which the catheter was replaced and after which he started having mild hematuria which seems to be resolving at present. Vitals/I&O/Wt Last Vital Signs Temp 98.2 F 05/08/20 12:00 Pulse 113 H 05/08/20 15:56 Resp 20 H 05/08/20 15:53 BP 113/84 05/08/20 15:00 Pulse Ox 92 05/08/20 15:53 05/08/20 05/08/20 05/08/20 06:59 14:59 22:59 Intake Total 318.297 / 284.357 4467.397 / 1081.397 Output Total 500 / 1875 925 / 925 Balance -181.703 / -1309.500 156.397 / 156.397 Weight last 48 hrs Weight 100.698 kg Weight 100.698 kg Physical Exam Narrative: EXAM NARRATIVE: General: No acute distress, AO x3, tired appearing, lethargic, maintaining saturation on high flow nasal cannula HEENT: PERRLA, pupils bilaterally equal and reactive Chest: Bilateral rhonchi along with crackles present all over the lung sharpe, good air entry all over the lung sharpe CVS: S1-S2 regular, no murmurs, no tachycardia, no gallops, no rubs Abdomen: Soft, nontender, no organomegaly, bowel sounds present Neuro: No focal deficits, no facial deformity, AO x3, power 5/5 in all limbs Urinary Catheter Management^: 2-way Urethral: Cath Placed During This Visit: yes Reason for Continuing Indwelling Catheter: Accurate Measurement of Urinary Output in Critically Ill Patients Urinary Catheter Date of Insertion: 05/07/20 Urinary Catheter Time of Insertion: 08:30 Data : 05/08/20 03:27 05/08/20 03:27 Micro: Microbiology 05/06/20 16:48 Blood Culture - Preliminary Blood NEGATIVE TO DATE 05/06/20 16:48 Blood Culture - Preliminary Blood NEGATIVE TO DATE 05/07/20 09:35 Bacterial Antigens - Final Urine,Clean Catch 05/07/20 09:35 Legionella Urinary Antigen - Final Urine Catheterized A&P Assessment and plan (1) Acute respiratory failure with hypoxia: Status: Acute (2) COVID-19: Status: Acute (3) CKD (chronic kidney disease): Status: Acute (4) Systolic heart failure secondary to coronary artery disease: Status: Acute (5) Hypertension: Status: Acute (6) Diabetes mellitus: Status: Acute (7) Lactic acidosis: Status: Acute (8) Hyperkalemia: Status: Acute Additional A&P Information Acute hypoxic respiratory failure/ARDS secondary to COVID-19 pneumonia: Oxygen supplementation keeping saturation over 90%. Continue with heated high flow for now maintaining saturations around 90%. Precedex as needed for agitation. Advance to GI soft diet. Continue with remdesivir to finish a 5-day course. Continue with Solu-Medrol 40 mg every 6 hours for now. Will not wean off today. Continue with ipratropium and Xopenex every 4 hours, Pulmicort twice daily Vitamin C, zinc. Tessalon Perles 100 mg scheduled 3 times a day. Aggressive pulmonary toilet with incentive spirometry and flutter valve. Procalcitonin negative, blood culture, urine culture, MRSA swab pending. Urine Legionella, bacterial antigen negative. For now as patient is critically sick we will continue Levaquin 500 mg every 48 hours as per his creatinine clearance. If patient spikes fever or white count trends up we will broaden the coverage. Appreciate CTA results. Patient would need full dose Lovenox but holding off on the same right now because of ongoing hematuria. Will monitor the hematuria and if needed can start Lovenox once urine starts clearing up. Follow-up inflammatory markers including proBNP, ferritin, CRP, ESR, D-dimer. CAD with systolic congestive heart failure: Repeat echocardiogram shows multiple regional wall motion abnormality with akinesia and an EF of around 30%. Continue with Lasix 40 mg IV twice daily. Patient is overall 1 L negative since admission now. Xavier catheterization. Strict input output charting, daily weights. Continue with atorvastatin and Plavix. CKD: Baseline creatinine as per PCP office around 1.3. Seems patient's creatinine is at baseline. Medical reconciliation done for nephrotoxic drugs we will continue to monitor. Tachycardia: Most likely paroxysmal A. fib. Better controlled. Continue with amiodarone 2 mg twice daily. IV Lopressor 5 mg as needed for heart rate more than 110 when systolic blood pressure is more than 100 mmHg. Hypertension: Goal blood pressure less than 140/90 mmHg with mean arterial pressure over 60. We will continue to monitor. Hold off on antihypertensives for now. Clear liquid diet advance to GI soft. Full code. CODE STATUS: Discussed in detail with patient's son Mr. Sabillon and patient himself and his healthcare proxy daughter Ms. Platt. They state that patient would not want any kind of chest compressions or intubation. Patient's CODE STATUS has been changed in the system. Also discussed in detail with both son and daughter with son at bedside that if patient saturation does not improve on oxygen supplementation unfortunately there is nothing much which could be done other than waiting. Also discussed that we will continue to monitor and current treatment for next 24 hours and revisit regarding further goals of care at that time. Family for now in termittently for comfort measures versus hospice if required. Case management consulted. Full dose Lovenox. Famotidine for PUD prophylaxis. Severely guarded prognosis Attestations Medical Necessity Statement*: Patient requires further hospitalization for management of ARDS because of COVID-19 pneumonia in setting of decompensated congestive heart failure and CAD. Time Spent in Patient Care: Greater than 35 minutes (>than 50% of time spent in counselling and/or direct pt care on unit) . Coding Level of Care Code Acute [employer] for [facility] Diagnoses Acute respiratory failure with hypoxia J96.01 COVID-19 U07.1 CKD (chronic kidney disease) N18.9 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
[2020-05-08] MEDS: metoprolol tartrate 1 mg/1 mL SDV 5 mL 5 MG IV ×2 (16:34→20:23)
[2020-05-08] MEDS: iron sucrose 200 MG in sodium chloride 0.9% (100 ml) 100 ML 220 MG IV (17:03)
[2020-05-08] MEDS: ascorbic acid 500 mg Tablet 1000 MG PO (17:05)
[2020-05-08] MEDS: docusate sodium 100 mg Capsule PO (17:05)
[2020-05-08 17:08] LABS: Glucose Point of Care 93 mg/dL (70-110)
[2020-05-08] MEDS: remdesivir 100 MG in sodium chloride 0.9% (100 ml) 100 ML IV (17:24)
--- NOTE | 2020-05-08 17:53 | USCV_ITS ---
Reena Gamez Age: 80 Gender: M : 1940 Exam Date: 05/08/2020 06:02 Ordering Phys: Charly Wells MD Technologist: Wolfgang Crocker Exam Location: [facility] – [place] Indication: PUL HYPERTENSIION BP: 87 / 68 HR: 50 Rhythm: Sinus Technical Quality: Fair MEASUREMENTS (Male / Female) Normal Values 2D ECHO LV Diastolic Diameter PLAX 5.5 cm 4.2 - 5.9 / 3.9 - 5.3 cm LV Systolic Diameter PLAX 5.2 cm IVS Diastolic Thickness 0.8 cm 0.6 - 1.0 / 0.6 - 0.9 cm IVS Systolic Thickness 0.8 cm LVPW Diastolic Thickness 1.2 cm 0.6 - 1.0 / 0.6 - 0.9 cm LVPW Systolic Thickness 1.3 cm LVOT Diameter 2.0 cm LV Ejection Fraction 2D Teich 12.9 % LV Ejection Fraction MOD 2C 33.7 % LV Ejection Fraction 2C AL 31.1 % LA Diameter 4.0 cm LA Width 4.1 cm LA Height 5.3 cm RA Width 4.6 cm RA Height 4.8 cm Aorta at Sinotubular Diameter 3.0 cm M-MODE LV Diastolic Diameter MM 5.7 cm 4.2 - 5.9 / 3.9 - 5.3 cm LV Systolic Diameter MM 4.6 cm LV Ejection Fraction MM Teich 39.0 % IVS Diastolic Thickness MM 0.8 cm 0.6 - 1.0 / 0.6 - 0.9 cm IVS Systolic Thickness MM 1.5 cm LVPW Diastolic Thickness MM 1.1 cm 0.6 - 1.0 / 0.6 - 0.9 cm LVPW Systolic Thickness MM 1.7 cm RV Diastolic Diameter MM 1.0 cm Aortic Annulus Diameter 3.2 cm LA Ao Ratio MM 1.3 MV E Point Septal Separation 1.9 cm DOPPLER AV Peak Velocity 129.0 cm/s LVOT Peak Velocity 52.0 cm/s AV Area Cont Eq vti 1.2 cm squared AV Area Cont Eq pk 1.3 cm squared MV Area PHT 5.0 cm squared Mitral E to A Ratio 2.9 MV E' Velocity 36.0 cm/s Mitral E to MV E' Ratio 9.2 Mitral E to LV E' Lateral Ratio 9.0 Mitral E to LV E' Septal Ratio 9.5 TR Peak Velocity 171.0 cm/s TR Peak Gradient 11.7 mmHg TV Peak E Velocity 73.0 cm/s Right Atrial Pressure 3.0 mmHg Pulmonary Artery Systolic Pressu 14.7 mmHg PV Peak Velocity 49.0 cm/s FINDINGS Left Ventricle Mildly dilated left ventricle with diminished ejection fraction of 31%. Severe hypokinesia of the septum, inferior wall and the apex. Moderate diffuse hypokinesia of the all the other segments. The basal inferior wall segment was found to be somewhat dyskinetic. Right Ventricle The right ventricle is normal in size and function. Right Atrium Mildly dilated Left Atrium Mildly dilated Mitral Valve Thickened mitral valve. Mild mitral annular calcification. Aortic Valve Thickened aortic valve. Tricuspid Valve No gross abnormalities noted Pulmonic Valve Pulmonic valve not well visualized. Pericardium Normal pericardium without effusion. Aorta Plaque seen in the ascending aorta. CONCLUSIONS 1. Multiple wall motion normalities with diminished ejection fraction of 31%. 2. Mildly dilated right atrium, left atrium and the left ventricle 3. Minimally thickened aortic and mitral valves. 4. No intracardiac masses. 5. No significant pericardial effusion. No similar previous studies are available for comparison Dr Philip De Jesus MD [facility] (Electronically Signed) Final Date: 08 May 2020 13:50 S
[2020-05-08] MEDS: acetaminophen 325 mg Tablet 650 MG PO (20:23)
[2020-05-08 21:42] LABS: Glucose Point of Care 161 mg/dL (70-110)
[2020-05-09] VITALS (34 sets, daily range): BP systolic 120–126; BP diastolic 68–89; PULSE 83–155; RESP 16–44; TEMP 35.7–36.4; O2SAT 77–96
[2020-05-09 00:16] LABS: Glucose Point of Care 61 mg/dL (70-110)
[2020-05-09] MEDS: metoprolol tartrate 1 mg/1 mL SDV 5 mL 5 MG IV ×3 (00:51→09:34)
[2020-05-09 01:21] LABS: Glucose Point of Care 262 mg/dL (70-110)
[2020-05-09] MEDS: OLANZapine 10 mg VIAL 5 MG IM (01:37)
[2020-05-09] MEDS: ipratropium 0.5 mg/2.5 mL Neb INHALATION ×3 (03:33→11:28)
[2020-05-09] MEDS: levalbuterol 0.63 mg/3 mL Neb INHALATION ×3 (03:33→11:28)
[2020-05-09 04:09] LABS: Glucose Point of Care 137 mg/dL (70-110)
[2020-05-09] MEDS: LORazepam 2 mg/mL INJ 1 mL 1 MG IVP (04:17)
[2020-05-09 04:24] LABS: Basophils % 0.1 %; Hematocrit 45.4 % (42.0-52.0); Hemoglobin 15.1 g/dL (11.7-16.6); Lymphocytes # 0.8 10^3/uL (0.8-4.8); Lymphocytes % 3.5 %; Mean Corpuscular HGB Conc 33.3 g/dL (30.0-36.0); Mean Corpuscular Hemoglobin 29.5 pg (28.0-34.0); Mean Corpuscular Volume 88.7 fL (80-94); Mean Platelet Volume 11.8 fL (7.4-10.4); Monocytes # 0.9 10^3/uL (0.2-0.9); Monocytes % 3.9 %; Neutrophils # 20.66 10^3/uL (1.8-7.7); Neutrophils % 91.4 %; Nucleated Red Blood Cells % 0.2 %; Platelet Count 197 10^3/cmm (130-400); Red Blood Count 5.12 10^6/uL (4.1-5.3); Red Cell Distribution Width 13.1 % (12.1-15.1); White Blood Count 22.6 10^3/uL (4.0-10.0)
--- NOTE | 2020-05-09 04:30 | PC.NURSE ---
Pt agitated throughout most of shift. Dr. Pedersen notified. Medications given, see MAR. Also noted during shift that patient's left hand appears weaker than the right hand. Dr. Pedersen notified. Will reassess when patient more alert (ativan given).
[2020-05-09] MEDS: FUROsemide 10 mg/mL SDV 4mL 40 MG IVP (04:47)
[2020-05-09 04:51] LABS: Fibrinogen 370 mg/dL (174-498)
[2020-05-09 05:00] LABS: D Dimer 4.78 ug/mIFEU (0-0.59)
[2020-05-09 05:05] LABS: Alanine Aminotransferase 14 U/L (0-41); Albumin Level 3.6 g/dL (3.5-5.2); Alkaline Phosphatase 134 IU/L (40-130); Anion Gap 20.4 (5-19); Aspartate Amino Transferase 25 U/L (0-40); Blood Urea Nitrogen 39 mg/dL (8-23); Calcium 10.1 mg/dL (8.5-10.5); Carbon Dioxide 22 mmol/L (22-29); Chloride 103 mmol/L (98-107); Globulin 3.6 g/dL (1.3-4.6); Glucose 117 mg/dL (65-115); Osmolality Calculated 304 mOsm/kg (285-295); Potassium 3.4 mmol/L (3.5-5.1); Sodium 142 mmol/L (136-145); Total Bilirubin 0.9 mg/dL (0.15-1.2); Total Protein 7.2 g/dL (6.6-8.7)
[2020-05-09 05:12] LABS: Lactate Dehydrogenase 447 U/L (135-225); NT Pro B Type Natriuretic Pept 4976 pg/mL (0-450)
--- NOTE | 2020-05-09 05:26 | USCV_ITS ---
Reena Gamez Age: 80 Gender: M : 1940 Exam Date: 05/09/2020 07:09 Ordering Phys: Clary Pedersen MD Technologist: Wolfgang Crocker [place] [facility] [place]: CVA Risk Factors: Unknown Previous Vascular Surgery: None Right Brachial BP: / Left Brachial BP: / Right Left Velocity (cm/s) Spectral Plaque Velocity (cm/s) Spectral Plaque Syst/Diast Broadening Syst/Diast Broadening 31.50/ 5.90 Hetro Prox CCA 38.80 / 11.70 31.00/ 6.90 Hetro Mid CCA 39.60 / 9.30 34.70/ 6.90 Hetro Distal CCA 48.20 / 7.00 Hetro 24.60/ 6.40 Rajat Prox ICA 34.60 / 6.40 Rajat 191.40/59.20 Rajat Mid ICA 44.70 / 12.50 Rajat 319.80/127.00 Distal ICA 70.30 / 22.30 Rajat 68.40 ECA 45.10 9.21 ICA/CCA 1.46 Antegrade Vertebral Antegrade 50.50/ 7.80 cm/s 33.50/ 10.50 cm/s Bi Subclavian Bi 71.50 88.70 FINDINGS CRITICAL STENOSIS IN RT MID TO DISTAL ICA CONCLUSIONS Right ICA stenosis 70-99% in the mid to distal ICA with elevated velocities. Recommend CTA in further evaluation. Moderate calcified atheromatous plaque. Left ICA stenosis <50%. Moderate calcified atheromatous plaque. Normal antegrade Doppler flow noted in the right vertebral artery. Normal antegrade Doppler flow noted in the left vertebral artery. Aly Del Cid MD (Electronically Signed) Final Date: 09 May 2020 14:05 S
--- NOTE | 2020-05-09 05:26 | CTR_ITS ---
PROCEDURE INFORMATION: Exam: CT Head Without Contrast Exam date and time: 05/09/2020 5:27 AM Age: 80 years old Clinical indication: Altered mental status/memory loss and speech disturbance and weakness, extremity; Patient HX: Poss CVA. Left sided weakness. Stuttered speech. Covid + TECHNIQUE: Imaging protocol: Computed tomography of the head without contrast. Radiation optimization: All CT scans at this facility use at least one of these dose optimization techniques: automated exposure control; mA and/or kV adjustment per patient size (includes targeted exams where dose is matched to clinical indication); or iterative reconstruction. Other technique: STROKE PROTOCOL was implemented. COMPARISON: No relevant prior studies available. RADIATION DOSE METRICS: Total DLP (mGy-cm): 2670.03 FINDINGS: Brain: Normal. No hemorrhage. Decreased white matter attenuation consistent with microvascular ischemic changes. No mass effect. Cerebral ventricles: Dilated ventricles and cisterns consistent with atrophy. Bones/joints: Unremarkable. No acute fracture. Paranasal sinuses: Visualized sinuses are unremarkable. No fluid levels. Mastoid air cells: Visualized mastoid air cells are well aerated. Soft tissues: Unremarkable. CT/CT head wo con* [id number] IMPRESSION: No acute intracranial abnormality. ASSESSMENT: ASPECTS ([place] Stroke Program Early CT Score) is 10 Radiation Dose CTDIVOL = (mGy): DLP = 2670.03 (mGy-cm)
--- NOTE | 2020-05-09 05:36 | P.EN_ITS ---
Event Note Event Note: Events overnight I was called around 4 AM about patient's agitation, as per the nurse: Patient wa s try to get out of bed, he was tachycardic and mildly tachypneic before that he was hypoglycemic which was treated, for his agitation 1 mg Ativan was recommended at night he received Zyprexa as well. Around 5:30 AM, nurse called me again that patient is not able to move his left arm, she noticed this finding when she was trying to ask the patient if his IV site is hurting, patient is DNR/DNI however her son last night told the nurse that he would not like intubation but would allow other medical management. 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 I was notified around 4 AM for agitation only and around 530am code stroke was called because of his worsening confusion and left-sided weakness Mr Gamez is not a TPA candidate because of ambiguous last well-known time, will start aspirin and high-dose statins, he is already on Plavix Dr. Heck has reviewed CT head and CTA head and neck findings with the radiologist, further assessment and plan will be decided after talking with the son whether they will opt for embolectomy or not, I would get another EKG, neurochecks every 4, will sign out to day team, Dr. Becker, Speech eval and PT requested. Would use normal saline at maintenance rate to help him perfuse better. We will keep Accu-Cheks every 2 hours to avoid fluctuation of serum glucose
[2020-05-09 05:48] LABS: Ferritin 1210 ng/mL (30-400)
[2020-05-09 05:49] LABS: Creatine Phosphokinase 403 U/L (39-308)
--- NOTE | 2020-05-09 06:00 | XR_ITS ---
WS: [id number] Exam: XR chest 1V portable [id number] Date/Time of Exam: 05/09/2020 7:03 AM Reason For Exam: covid Comparison 05/07/2020. Widespread infiltrates noted throughout both lungs show improvement. There is less consolidation note d. The lungs remain fully expanded. Superimposed changes of bullous emphysema. Unremarkable cardiomed iastinal structures and bony elements. No pneumothorax or pleural effusion. XR/XR chest 1V portable [id number] IMPRESSION: 1. Improving widespread pulmonary infiltrates with less consolidation and noted previously.
--- NOTE | 2020-05-09 06:15 | CTR_ITS ---
PROCEDURE INFORMATION: Exam: CT Angiography Head With Contrast Exam date and time: 05/09/2020 6:15 AM Age: 80 years old Clinical indication: Speech disturbance and weakness; Patient HX: AMS. Left sided weakness. Stuttered speech. Covid +; Additional info: Poss CVA TECHNIQUE: Imaging protocol: Computed tomography angiography of the head with intravenous contrast. 3D rendering (Not supervised by radiologist): MIP and/or 3D reconstructed images were created by the technologist. Radiation optimization: All CT scans at this facility use at least one of these dose optimization techniques: automated exposure control; mA and/or kV adjustment per patient size (includes targeted exams where dose is matched to clinical indication); or iterative reconstruction. Contrast material: VISI 320; Contrast volume: 95 ml; Contrast route: INTRAVENOUS (IV); COMPARISON: CT head wo con* [id number] 05/09/2020 5:39 AM RADIATION DOSE METRICS: Total DLP (mGy-cm): 1321.22 FINDINGS: ANTERIOR CIRCULATION: Right internal carotid artery: There is prominent atherosclerotic plaquing with high-grade stenosis in the right internal carotid artery as it passes in the right carotid canal. There is prominent atherosclerotic calcification in the right carotid siphon. Right middle cerebral artery: Unremarkable. No occlusion or significant stenosis. No aneurysm. Right anterior cerebral artery: Unremarkable. No occlusion or significant stenosis. No aneurysm. Left internal carotid artery: There is prominent atherosclerotic calcification in the left carotid siphon with mild stenosis. No aneurysm. Left middle cerebral artery: Unremarkable. No occlusion or significant stenosis. No aneurysm. Left anterior cerebral artery: Unremarkable. No occlusion or significant stenosis. No aneurysm. POSTERIOR CIRCULATION: Right vertebral artery: Unremarkable. No occlusion or significant stenosis. No aneurysm. Left vertebral artery: Unremarkable. No occlusion or significant stenosis. No aneurysm. Basilar artery: Unremarkable. No occlusion or significant stenosis. No aneurysm. Right posterior cerebral artery: Unremarkable. No occlusion or significant stenosis. No aneurysm. Left posterior cerebral artery: Unremarkable. No occlusion or significant stenosis. No aneurysm. Brain: Generalized chronic atrophy with chronic white matter ischemic changes. No definite mass, mass effect, or midline shift. Cerebral ventricles: No ventriculomegaly. Bones/joints: Unremarkable. No acute fracture. Soft tissues: Unremarkable. IMPRESSION: 1. Prominent plaquing with high-grade stenosis in the right internal carotid artery in the right carotid canal. 2. Prominent atherosclerotic calcification in the carotid siphons bilaterally. 3. No large vessel occlusion. PROCEDURE INFORMATION: Exam: CT Angiography Neck With Contrast Exam date and time: 05/09/2020 6:15 AM Age: 80 years old Clinical indication: Speech disturbance and weakness; Patient HX: AMS. Left sided weakness. Stuttered speech. Covid +; Additional info: Poss CVA TECHNIQUE: Imaging protocol: Computed tomography angiography of the neck with intravenous contrast. 3D rendering (Not supervised by radiologist): MIP and/or 3D reconstructed images were created by the technologist. Radiation optimization: All CT scans at this facility use at least one of these dose optimization techniques: automated exposure control; mA and/or kV adjustment per patient size (includes targeted exams where dose is matched to clinical indication); or iterative reconstruction. Contrast material: VISI 320; Contrast volume: 95 ml; Contrast route: INTRAVENOUS (IV); COMPARISON: CT head wo con* [id number] 05/09/2020 5:39 AM RADIATION DOSE METRICS: Total DLP (mGy-cm): 1321.22 FINDINGS: Right common carotid artery: No stenosis. No dissection or occlusion. Right internal carotid artery: There is severe, 70% to 99% stenosis of the proximal right internal carotid artery about 1.5 cm above its origin. There is prominent plaquing and calcification. Right external carotid artery: No occlusion or stenosis of the origin. Right vertebral artery: No stenosis. No dissection or occlusion. Left common carotid artery: No stenosis. No dissection or occlusion. Left internal carotid artery: There is calcified atherosclerotic plaquing near the origin of the left internal carotid artery. There is moderate 50-69% stenosis. Left external carotid artery: No occlusion or stenosis of the origin. Left vertebral artery: No stenosis. No dissection or occlusion. Bones/joints: No acute fracture. Soft tissues: Normal. No significant soft tissue swelling. Lungs: Prominent extensive interstitial infiltrates are present in both upper lobes. CT/CT angio headneck* [id number] IMPRESSION: 1. 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 2. Moderate 50-69% stenosis near the origin of the left internal carotid artery. REFERENCES: NASCET CRITERIA. The degree of internal carotid artery stenosis is based on NASCET criteria. Normal is no stenosis. Mild is less than 50% stenosis. Moderate is 50-69% stenosis. Severe is 70% to 99% stenosis. Total occlusion is no detectable patent lumen. Findings were discussed with Dalia Hekc at 05/09/2020 7:10 AM CNC MILLING MACHINIST. Radiation Dose CTDIVOL = (mGy): DLP = 1321.22~1321.22 (mGy-cm)
[2020-05-09] MEDS: iodixanol 320 mg/mL 100mL Btl IV (06:21)
[2020-05-09 06:42] LABS: C Reactive Protein 38.9 mg/L (0.0-4.9)
--- NOTE | 2020-05-09 07:05 | PC.NURSE ---
Pt had mild ataxia of left hand when attempting to point at IV in approximately the 0200 hour. At that time slat basket maker helper, pushes/pulls, pupils all equal with no drift, moving all extremities. Pt still confused and agitated, attempting to get OOB almost constantly. Dr. Pedersen notified right before 0400. Zyprexa and ativan given as ordered. Charge nurse to room later in shift and noted that pt not moving left arm. Code stroke called. Pt to CT and Dr. Pedersen to room. Spoke with Dr. Heck who will speak with family.
[2020-05-09 07:30] LABS: Glucose Point of Care 97 mg/dL (70-110)
--- NOTE | 2020-05-09 07:35 | PC.NURSE ---
Addendum entered by Mara Saini RN 05/09/20 07:40: 250mL insulin drip waster with MICK Ramon. Original Note: INSULIN GTT 0530 on 05/08/20 Pharmacy called for additional insulin gtt. Bag spiked and hung, but never connected to patient as nurse had just noticed AM BMP back and gap closed. Dr. ePdersen called to notify of anion gap closing and ordered insulin gtt to be stopped, so second bag never connected to patient or scanned. 20 units lantus ordered and to restart Q6H med-dose regimen sliding scale novolog. 250 mL insulin gtt wasted with Brooke Saini RN.
[2020-05-09 07:39] LABS: Glucose Point of Care 144 mg/dL (70-110)
[2020-05-09] MEDS: sodium chloride 0.9% 1,000 ML 75 ML IV (08:05)
[2020-05-09] MEDS: famotidine 20 mg/2 mL INJ IVP (08:14)
[2020-05-09 08:26] LABS: Glucose Point of Care 119 mg/dL (70-110)
--- NOTE | 2020-05-09 08:27 | PM.SAN ---
Stroke Alert Activation ED Arrival Date: 05/09/20 Last Known Normal/at Baseline: 3-4 hours ago Other Last Known Well Infomation: I was called at 05 37 to activate the stroke team. I called back to the Covid unit and spoke with the charge nurse. She reported that there were some symptoms at 2 AM that worsened at 4 AM but could not tell me with security the last known normal time. I called back and spoke with Dr. Devin Hernandez, who had not yet had an opportunity to directly evaluate the patient but had been dealing with Mr. Gamez's agitation throughout the night. He was of the impression that it 2 in the morning the patient had some mild symptoms in the left hand but by 4 in the morning his symptoms had worsened and he thought it was due to sedative and asked the nurses to monitor. By 530 he clearly had a deficit and stroke alert was called. I quickly dressed and came to the office where I reviewed the patient's CAT scan of the head and CT angiogram. It looks like he probably had near occlusion of the right carotid artery and an old stroke and watershed distribution on the right but nothing acute. I started trying to get in touch with virtual radiology immediately which would have been around 615. I was on hold and the phone stopped working so I went directly to radiology and spoke with the CAT scan science technician and asked him to get in touch with the virtual radiologist so I could talk with him about his CTA, which still had not been read. By then it was 630 or a little later. I went to the patient's bedside and talked with Dr. Hernandez. By that time we had both had an opportunity to review the chart and discover that the patient had been profoundly ill, hypoxic, hypoglycemic with blood sugars in the 30s yesterday and that he had made himself a DNR and there had been discussion of hospice care. I performed an NIH stroke scale which is detailed below. I talked with Dr. Hernandez, and at the same time the radiologist called back and confirmed that there was string flow through the right carotid artery but also tight stenosis in the right carotid siphon. Right middle cerebral artery was wide open and so were communicating arteries in the [place] on the right. I returned to my office and called the patient's daughter who is power of trademark attorney. I described my findings of stroke in the right middle cerebral artery distribution and nearly occluded right carotid artery at 2 locations with sparing of the right middle cerebral artery or no obvious clot intracranially. She did not think that her father would want to consider embolectomy and she did not think that it would be a good idea to try to send him to another institution for aggressive treatment. We agreed to aggressive medical management with IV fluids, normoglycemia and physical therapy. I called Dr. Nails and apprised him of all of the events and signed off at 0805 Stroke Alert Activated by: Charge nurse on the Covid unit Stroke Alert Activation Time: 05:35 Stroke MD @ Bedside Time: 05:35 NIH Stroke Scale Time: 06:00 NIH stroke score NIHSS: Level Of Consciousness - 1a: 2 Level Of Consciousness Questions - 1b: Neither Correct Level Of Consciousness Commands - 1c: Neither Correct Best Gaze - 2: Forced Deviation Visual Eisenberg - 3: Complete Hemianopia Facial Palsy - 4: Partial Paralysis Motor Arm Right - 5: No Drift Motor Arm Left - 5: No Movement Motor Leg Left - 6: No Effort Against [place] Limb Ataxia - 7: Absent Sensory - 8: Normal (He becomes agitated with painful stimulus) Best Language - 9: No Aphasia Dysarthia - 10: Mild/Moderate Dysarthia Extinction And Inattention - 11: 2 Stroke Alert Data/Treatment Time to CT of Head: 05:35 tPA Contraindication: tPA Contraindication: Medical contraindication (Outside the window for peripheral TPA with unclear time of onset) Patient & Family Educated on: Cause of Stroke, Treament Plan, Prognosis and tPA Risks/Benefits Other Information: This patient had been on Lovenox with presumed atrial fibrillation coming and going. That Lovenox was held yesterday but the time of the initial stroke alert, the impression was that he was on full Lovenox. His profound agitation requiring sedatives was a confounding factor and prevented initial diagnosis at 2 in the morning and his symptoms were subtle at that time. His family compassionately feels that aggressive action with embolectomy would not be indicated by his overall clinical condition. Critical Care Time Critical Care Time: 75 - 104 mins A&P Assessment and plan (1) Acute right arterial ischemic stroke, middle cerebral artery (MCA): Acute right middle cerebral artery stroke probably due to multilevel near occlusion of the right carotid artery with decreased flow. He has had multiple events of hypoglycemia in the last several days which could cause symptoms in an artery that is underperfused such as this 1. He is now normoglycemic. He has been experiencing congestive heart failure which is probably not a confounding factor. He has underlying dementia and toxic metabolic/hypoxic encephalopathy acutely. For multiple reasons he is a poor candidate for embolectomy, since his right middle cerebral artery is open and his [place] is intact. Everyone agrees that the appropriate treatment at this point should be IV fluids as much as he will tolerate with his congestive heart failure, continue antiplatelet therapy when it is safe to do so and probably put him back on Lovenox when he is stable from his hematuria. Status: Acute Coding Level of Care Code Acute Technical Training Coordinator for [facility] Diagnoses Acute right arterial ischemic stroke, middle cerebral artery (MCA) I63.511
--- NOTE | 2020-05-09 08:33 | PC.SOCIAL ---
IM discussed with nurse and she will explain and provide copy to patient. His discharge is not planned for today. One copy will be placed in chart. Note provided on copy given to patient with CM contact number.
[2020-05-09 08:49] LABS: Glucose Point of Care 185 mg/dL (70-110)
--- NOTE | 2020-05-09 09:15 | PC.SOCIAL ---
IM explained and nurse will provide copy to patient. Placed copy in chart.
--- NOTE | 2020-05-09 09:19 | PC.NURSE ---
9:00 PO meds held due to altered mental status. Unable to swallow. Dr yap alerted thatamiodarone was held. Nurse instructed to give the PRN metoprolol.
[2020-05-09 10:57] LABS: Glucose Point of Care 196 mg/dL (70-110)
--- NOTE | 2020-05-09 11:10 | PC.NURSE ---
Continuing to hold PO meds as patient is still altered. MD aware of PO meds being held. Repositioned patient.
[2020-05-09 12:07] LABS: Glucose Point of Care 255 mg/dL (70-110)
--- NOTE | 2020-05-09 13:03 | PC.NURSE ---
Nurse Called patient's healthcare proxy and daughter, Giulia Negron, to discuss comfort care. Giulia wants the patient on comfort care. Nurse alerted Dr yap to comfort care request. Other family members are already here to visit. I have alerted them, patient daughter cecily, son in law karin, and son sanaz to comfort care transition.
--- NOTE | 2020-05-09 13:05 | PC.NURSE ---
Nurse is now transitioning patient to comfort care measures. Oxygen being changed to 2L NC per Dr yap. Atropine, lorazepam, and morphine available for comfort.
[2020-05-09] MEDS: morphine 4 mg/mL SDV 1 mL IVP ×2 (13:25→18:39)
--- NOTE | 2020-05-09 13:47 | PC.NURSE ---
Nurse Administered 2 mg of morphine PRN for shortness of breath. Pt is now resting comfortably.
--- NOTE | 2020-05-09 13:51 | PC.PT ---
PT note; discharge physical therapy to hospice care.
--- NOTE | 2020-05-09 15:44 | P.PN_ITS ---
Subjective Subjective: Interval history: Overnight patient's blood sugar continues to remain fluctuant. At around 5 AM code stroke was called and the CT head and neck done showed severe stenosis with near 99% stenosis at origin of right ICA. Patient's case was discussed with Dr. Heck who had seen the patient earlier in the morning as well. Dr. Heck also spoke with patient's daughter Ms. Platt who is also the healthcare proxy and the plan at that time was not to transfer patient to higher center and continue current treatment. I had extensive goals of care discussion with patient's healthcare proxy where we discussed that unfortunately patient is critically ill with multiple organs involved. We also discussed that unfortunately he has a right MCA stroke with 99% stenosis of right ICA which if left untreated can be fairly detrimental. Also discussed that if ejection fraction is only 30% which is lower than his last echocardiogram in 2017 with multiple regional motion remote abnormality which is most likely ischemic in nature, ARDS because of COVID-19 pneumonia requiring high amount of oxygen supplementation, altered mental status because of sepsis, worsening JUDE and mildly worsening of LFTs. We also discussed that unfortunately patient will most likely need prolonged hospitalization at the end of it is not necessary that patient will be back to his baseline mentation and physical capabilities. Patient daughter kendall stated given all the above she have discussed the goals of care with her family and they would want her father to be placed comfort care measures only. Comfort care measures were discussed in detail with patient's daughter and after that CODE STATUS was changed. Vitals/I&O/Wt Last Vital Signs Temp 97.5 F L 05/09/20 12:00 Pulse 105 H 05/09/20 14:00 Resp 24 H 05/09/20 13:25 BP 126/68 05/09/20 12:00 Pulse Ox 85 L 05/09/20 13:25 05/09/20 05/09/20 05/09/20 06:59 14:59 22:59 Intake Total 87.5 / 87.5 Output Total 1625 / 3200 Balance -1625 / -1608.603 87.5 / 87.5 Weight last 48 hrs Weight 101.06 kg Weight 100.698 kg Physical Exam Narrative: EXAM NARRATIVE: General: No acute distress, AO x3, tired appearing, lethargic, maintaining saturation on high flow nasal cannula HEENT: PERRLA, pupils bilaterally equal and reactive Chest: Bilateral rhonchi along with crackles present all over the lung sharpe, good air entry all over the lung sharpe CVS: S1-S2 regular, no murmurs, no tachycardia, no gallops, no rubs Abdomen: Soft, nontender, no organomegaly, bowel sounds present Neuro: No focal deficits, no facial deformity, AO x3, power 5/5 in all limbs Urinary Catheter Management^: 2-way Urethral: Cath Placed During This Visit: yes Reason for Continuing Indwelling Catheter: Accurate Measurement of Urinary Output in Critically Ill Patients Urinary Catheter Date of Insertion: 05/07/20 Urinary Catheter Time of Insertion: 08:30 Data : 05/09/20 03:34 05/09/20 03:34 A&P Assessment and plan (1) Acute respiratory failure with hypoxia: Status: Acute (2) COVID-19: Status: Acute (3) CKD (chronic kidney disease): Status: Acute (4) Systolic heart failure secondary to coronary artery disease: Status: Acute (5) Hypertension: Status: Acute (6) Diabetes mellitus: Status: Acute (7) Lactic acidosis: Status: Acute (8) Hyperkalemia: Status: Acute Additional A&P Information Goals of care treatment changed to comfort measures only today. No further blood work, vital check, blood sugar check as per protocol. Morphine as needed for air hunger and pain along with Ativan as needed. Scopolamine as needed for excessive secretion. Albuterol as needed. We will change oxygen supplementation to 2 L. Patient's family can visit bedside with proper PPE. Goals of care were discussed with case management as well. Attestations Medical Necessity Statement*: Requires further hospitalization for management of ARDS, stroke, CKD in setting of COVID-19 pneumonia when goals of care has been modified to comfort measures after extensive discussion with patient's family and healthcare proxy. Time Spent in Patient Care: Greater than 35 minutes (>than 50% of time spen t in counselling and/or direct pt care on unit) . Coding Level of Care Code Acute Adventure Therapist for [facility] Fwd Diagnoses Acute respiratory failure with hypoxia J96.01 COVID-19 U07.1 CKD (chronic kidney disease) N18.9 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
[2020-05-09] MEDS: LORazepam 2 mg/mL INJ 1 mL IVP (18:37)
--- NOTE | 2020-05-09 18:49 | PC.NURSE ---
Patient has started to become anxious and rapid breathing. Nurse administered Lorazepam and morphine prn for comfort care.
--- NOTE | 2020-05-09 19:09 | PC.NURSE ---
Shift change - report given to oncoming nurse. Patient is on comfort care. Has recently received morphine and lorazapam. Was on hi flow O2 today, but changed to 2 l nc for comfort care. Cyanosis to extremities noted near the end of shift. Patient is starting to experience frequent PVCs. Introduced nurse to family members at bedside. Patient is allowed visitors per Dr yap due to comfort care measures.
[2020-05-09] MEDS: morphine 4 mg/mL SDV 1 mL 2 MG IVP (23:59)
[2020-05-10] VITALS: BP 126/68; PULSE 158; RESP 25; O2SAT 71
[2020-05-10 01:00] VITALS: BP 126/68; PULSE 167; RESP 23; O2SAT 69
[2020-05-10 02:00] VITALS: BP 126/68; PULSE 147; RESP 24; O2SAT 66
[2020-05-10 02:18] VITALS: RESP 24
[2020-05-10] MEDS: morphine 4 mg/mL SDV 1 mL IVP (02:18)
[2020-05-10] MEDS: LORazepam 2 mg/mL INJ 1 mL IVP (02:18)
[2020-05-10 03:00] VITALS: BP 126/68; PULSE 0; RESP 4
--- NOTE | 2020-05-10 03:05 | PC.NURSE ---
Time of 05/10/20 0305: Patient asystolic. Cardiopulmonary verified by absence of a heart beat et spontaneous respirations. Absence of heart beat verified by 2 RNs. Patient's family at bedside. Family was informed of et all questions answered et concerns addressed. home information was obtained from patient's son Ridge. All of patient's belongings, including dentures were sent home with the family. Will notify all appropriate parties of time of ,
--- NOTE | 2020-05-10 03:10 | PC.NURSE ---
Time of notification: Notified warehouse laborer of patient's . World[employer] Chief Creative Officer will notify [facility] transplant services of time of . et next of kin information given to warehouse laborer.
--- NOTE | 2020-05-10 03:25 | PC.NURSE ---
Time of Notification: Notified Dr. Pedersen of patient's .
--- NOTE | 2020-05-10 03:31 | PM.EVENT ---
Event Note Event Note: Mr. Gamez at 3:05 AM final note to be done by Dr. Baker
--- NOTE | 2020-05-10 03:51 | PC.NURSE ---
All lines et huerta removed. Patient cleaned et placed in new gown. Will have body ready for transport to home when they arrive.
--- NOTE | 2020-05-10 08:27 | PM.DDS ---
Discharge Providers DDS Date of Admission: 05/06/20 16:13 Date Summary Completed: 05/10/20 Attending Provider at Admission: Charly Wells MD Time of : 03:05 Attending Provider at Discharge: Charly Wells MD Primary Care Provider: Ramez SRINIVASAN Diagnoses Hospital Diagnoses (1) Acute respiratory failure with hypoxia: (2) COVID-19: (3) CKD (chronic kidney disease): Problem details: Last creat from PCP's office- Feb 2020- (4) Systolic heart failure secondary to coronary artery disease: Problem details: ECHO 01/2017- , Mild dilated LV, Mild MR, EF 40% (5) Hypertension: (6) Diabetes mellitus: (7) Lactic acidosis: (8) Hyperkalemia: Reason for Visit Reason for Visit: covid+/lethargic/no appetite Summary Date and Time of Date of : 05/10/20 Time of : 03:05 Summary Summary: Reena Gamez is a 80 year old male with past medical history of hypertension, diabetes, CAD with possible PCI, possible COPD not on home oxygen, BPH who was brought in by son today after feeling lethargic, sleeping on and off, decreased appetite, difficulty in breathing along with cough, occasional subjective feelings of fever going on for last 7 to 10 days. As per the son patient has been living alone for last 6 to 7 years after his and has not been able to take care of of himself because of which Mr. Gamez has been living with his son for last couple of weeks. Patient was diagnosed of COVID-19 around 10 days ago. Patient has not been having any diarrhea to have decreased appetite. As per son patient has also been having extreme weakness because of which he has been having bladder accidents specially at night. As per son patient does take Lasix 40 mg twice daily with the evening dose at around 8 PM. In the ER patient was found to be hypoxic down to 80s even on 6 L oxygen mask so decision was made to admit patient to the hospital. His blood work in the ER showed a white count of 7.6, hemoglobin of 12.8, platelet of 150, D-dimer of 3.98, ABG showing a pH of 7.4, PCO2 26, PO2 47.9, sodium of 133, potassium of 4.3, creatinine of 1.3, lactic acid of 3.5, AST/ALT of 16/11, CRP of 56.7 with chest x-ray showing widespread groundglass infiltrates throughout the lung bilaterally. On examination patient was saturating 85% on 6 L oxygen mask and was transitioned over to high flow nasal cannula after which her saturations improved to low 90s. His heart rate was fluctuating between 95-115 bpm with blood pressure of 109/78 mmHg. Patient was admitted to the hospital to the ICU for ARDS because of COVID-19 pneumonia superimposed on congestive heart failure. He was started on antiviral treatment, antibiotic, diuresis with Lasix, anticoagulation with full dose Lovenox. Patient did not respond well to the treatment and he continued to remain hypoxic requiring more oxygen supplementation to maintain a saturation around 90%. During hospitalization he also developed tachycardia because of atrial fibrillation which was managed with amiodarone drip. He also developed altered mental status because of hypoxia which gradually remained stable. Echocardiogram was done which showed grade 1 diastolic dysfunction with EF of around 30% with multiple regional motion abnormalities consistent with ischemic cardiomyopathy. 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 Because of multiple organ involvement including worsening renal functions, severely reduced ejection fraction, ARDS, new stroke further goals of care discussion was done with patient's healthcare proxy Ms. Platt who made patient comfort care after discussing with her family members. Patient remained comfortable in his hospitalization after that. He eventually staff psychologist on May 10 at 3:05 AM. Additional Data Confirmation of as documented by pronouncing clinician: no pulse Family: contacted Additional persons at bedside: nursing staff Attending/PCP notified?: I am attending Was code activated?: No Autopsy requested?: No Advance directives?: Yes Hospice patient?: No Discharge Plan Discharge Patient Disposition: Home Condition: Stable Prescriptions: No Action carvedilol 12.5 mg tablet 12.5 mg PO BID@1100,2300 RF: 0 tizanidine 2 mg tablet 1 - 2 mg PO TID PRN (Reason: muscle spasms) RF: 0 pravastatin 40 mg tablet 40 mg PO DAILY@1100 RF: 0 glipizide 10 mg tablet extended release 24hr 10 mg PO DAILY@1100 RF: 0 prednisone 20 mg tablet 20 mg PO BID@1099,2300 RF: 0 isosorbide mononitrate 30 mg tablet extended release 24 hr 30 mg PO BID@1099,2299 RF: 0 clopidogrel 75 mg tablet 75 mg PO DAILY@1100 RF: 0 spironolactone 25 mg tablet 25 mg PO DAILY@1100 RF: 0 tamsulosin 0.4 mg capsule 0.4 mg PO DAILY@1100 RF: 0 pantoprazole 40 mg tablet,delayed release (DR/EC) 40 mg PO BID@1099,2300 RF: 0 metformin 500 mg tablet extended release 24 hr 1,000 mg PO BID@1099,230 RF: 0 potassium chloride 10 mEq tablet,ER particles/crystals 10 meq PO BID@1099,2299 RF: 0 furosemide 40 mg tablet 40 mg PO BIDWM RF: 0 Ventolin HFA 90 mcg/actuation HFA aerosol inhaler 2 puff INHALATION DIRECTED RF: 0 DS Attestations Time Spent in /Discharge Care*: greater than 30 min Quality - AMI: AMI present?: No Quality - Stroke: CVA present?: Yes Reason for No Antithrombin at DC: Refused Quality - VTE: VTE present?: No Coding Level of Care Code Acute Registered Radiologic Technologist for [facility] Fwd Diagnoses Acute respiratory failure with hypoxia J96.01 COVID-19 U07.1 CKD (chronic kidney disease) N18.9 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
[2020-05-10 13:48] VITALS: BP 0/0; PULSE 0; RESP 0; O2SAT 0
== END 2020-05-10 04:00 | disposition expired | DRG 177 ==
LOC: ER 14:08 → MS 2A 17:48
PROVIDERS: Admitting Provider Student in an Organized Health Care Education/Training Program; Emergency Provider Family Medicine; PCP Family Medicine; Visit Provider Student in an Organized Health Care Education/Training Program
DX: U07.1 COVID-19 (principal); J12.82 Pneumonia due to coronavirus disease 2019; I50.23 Acute on chronic systolic (congestive) heart failure; J96.01 Acute respiratory failure with hypoxia; G92 Toxic encephalopathy; I63.511 Cerebral infarction due to unspecified occlusion or stenosis of right middle cerebral artery; I13.0 Hypertensive heart and chronic kidney disease with heart failure and stage 1 through stage 4 chronic kidney disease, or unspecified chronic kidney disease; E87.2 Acidosis; G81.94 Hemiplegia, unspecified affecting left nondominant side; N18.9 Chronic kidney disease, unspecified; E11.22 Type 2 diabetes mellitus with diabetic chronic kidney disease; E11.65 Type 2 diabetes mellitus with hyperglycemia; I25.10 Atherosclerotic heart disease of native coronary artery without angina pectoris; N40.0 Benign prostatic hyperplasia without lower urinary tract symptoms; H35.30 Unspecified macular degeneration; Z85.828 Personal history of other malignant neoplasm of skin; Z87.891 Personal history of nicotine dependence; I48.0 Paroxysmal atrial fibrillation; Z66 Do not resuscitate; E87.5 Hyperkalemia; J43.9 Emphysema, unspecified; I25.5 Ischemic cardiomyopathy; F03.90 Unspecified dementia, unspecified severity, without behavioral disturbance, psychotic disturbance, mood disturbance, and anxiety; Z86.73 Personal history of transient ischemic attack (TIA), and cerebral infarction without residual deficits; I65.23 Occlusion and stenosis of bilateral carotid arteries; R29.810 Facial weakness; R47.89 Other speech disturbances; R29.713 NIHSS score 13
CPT/HCPCS: 12345; 36415; 36416; 36600; 51702; 70450; 70496; 70498; 71045; 71275; 80048; 80051; 80053; 82330; 82550; 82728; 82803; 82805; 82962; 83036; 83540; 83550; 83605; 83615; 83735; 83880; 84100; 84145; 84439; 84443; 84481; 85007; 85025; 85378; 85384; 86140; 86403; 87040; 87449; 87641; 87804; 92523; 92610; 93306; 93880; 94640; 94664; 96372; 97110; 97162; 97530; 99284; J0282; J1100; J1650; J1756; J1815 ×2; J1940; J1956; J2060; J2270; J2920; J2930; J3490; J3535; J7030; J7040; J7050; J7060; J7614; J7644; Q9967